=== PATIENT | male | born 1970 | race Caucasian/White ===

== ENCOUNTER 2022-01-29 08:08 | Outpatient (CLI) | payer BC, SELFPAY ==
[2022-01-29 08:39] LABS: Basophils Absolute Auto 0.1 K/mm3 (0.0-0.1); Basophils Percent Auto 1.1 % (0.2-1.2); Eosinophils Absolute Auto 0.2 K/mm3 (0-0.3); Eosinophils Percent Auto 2.6 % (0-4.4); Hematocrit 50.9 % (42.0-52.0); Hemoglobin 16.6 g/dL (14.0-18.0); Immature Granulocyte Absolute 0.14 K/mm3 (0.00-0.031); Immature Granulocyte Percent A 1.9 % (0-0.5); Lymphocytes Absolute Auto 2.51 K/mm3 (0.9-3.2); Lymphocytes Percent Auto 34.5 % (18.3-44.2); Mean Corpuscular HGB Conc 32.6 g/dl (32-36); Mean Corpuscular Hemoglobin 29.9 pg (26-34); Mean Corpuscular Volume 91.5 fl (80-100); Mean Platelet Volume 10.3 fl (7.4-10.4); Monocytes Absolute Auto 0.9 K/mm3 (0.1-0.6); Monocytes Percent Auto 11.7 % (2.6-8.5); Neutrophils Absolute Auto 3.5 K/mm3 (1.3-6.7); Neutrophils Percent Auto 48.2 % (45.5-73.1); Platelet Count Result 340 k/mm3 (150-375); Red Blood Count 5.56 M/mm3 (4.6-6.20); Red Cell Distribution Width 13.3 % (11.5-14.5); White Blood Count 7.3 K/mm3 (4.5-10.0)
[2022-01-29 08:42] LABS: Add Urine Microscopic? YES; Appearance Urine Clear (Clear); Bilirubin Urine Negative (Negative); Blood Urine Negative (Negative); Color Urine Yellow (Yellow); Glucose Urine UA Negative (Negative); Ketones Urine Negative (Negative); Leukocyte Esterase Ur Negative LEU/UL (NEGATIVE); Mucus Urine Rare /lpf; Nitrate Urine Negative (Negative); Protein Urine Negative (Negative); Specific Grav Ur 1.017 (1.001-1.035); Urobilinogen Urine Negative mg/dL (<2.0); WBC Urine 0-3 /hpf (0-3)
[2022-01-29 08:43] LABS: Alanine Aminotransferase 41 U/L (4-50); Albumin Level 4.6 g/dL (3.5-5.1); Alkaline Phosphatase 74 U/L (38-126); Anion Gap 6 mmol/L (8-16); Aspartate Amino Transferase 35 U/L (17-59); Bilirubin,Total 0.7 mg/dL (0.2-1.3); Blood Urea Nitrogen 14 mg/dL (9-20); Carbon Dioxide 26 mmol/L (22-30); Chloride 105 mmol/L (98-107); Cholesterol 280 mg/dL (0-200); Estimated Glomerular Filt Rate > 60; Glucose 99 mg/dL (65-110); HDL Direct 53 mg/dL; Potassium 4.3 mmol/L (3.4-5.0); Sodium 137 mmol/L (137-145); Triglycerides 97 mg/dL (<150)
[2022-01-29 08:55] LABS: LDL Cholesterol Direct 172 mg/dL
[2022-01-29 09:40] LABS: Prostate Specific Antigen 0.4 ng/mL (< OR = 4.0)
[2022-02-01 19:33] LABS: Testosterone Total 321 ng/dL (250-1100)
== END 2022-01-29 08:09 | disposition home or self-care (01) ==
LOC: ANHLAB 08:10
PROVIDERS: PCP Family Medicine; Visit Provider Physician Assistant
DX: Z00.00 Encounter for general adult medical examination without abnormal findings (principal); R53.83 Other fatigue; F41.1 Generalized anxiety disorder; I10 Essential (primary) hypertension
CPT/HCPCS: 36415; 80053; 80061; 81001; 84153; 84403; 84443; 85025; G0103

== ENCOUNTER 2022-05-11 16:19 | Outpatient (CLI) | payer BC, SELFPAY ==
[2022-05-11 17:26] LABS: Appearance Urine Clear (Clear); Bilirubin Urine 1+ (Negative); Blood Urine Trace-lysed (Negative); Color Urine Yellow (Yellow); Glucose Urine UA Negative (Negative); Ketones Urine 1+ mg/dL (Negative); Leukocyte Esterase Ur Negative LEU/UL (NEGATIVE); Nitrate Urine Negative (Negative); Protein Urine Negative (Negative); Specific Grav Ur 1.025 (1.001-1.035); Urobilinogen Urine 0.2 mg/dL (<2.0); pH Urine 5.5 (5.0-9.0)
[2022-05-11 17:36] LABS: Mucus Urine Few /lpf; WBC Urine 0-3 /hpf (0-3)
[2022-05-11 17:37] LABS: Add Urine Microscopic? YES
== END 2022-05-11 16:20 | disposition home or self-care (01) ==
LOC: ANHLAB 16:21
PROVIDERS: PCP Family Medicine; Visit Provider Physician Assistant
DX: E78.5 Hyperlipidemia, unspecified (principal); R31.9 Hematuria, unspecified
CPT/HCPCS: 36415; 81001; 87086

== ENCOUNTER 2022-05-17 10:21 | Outpatient (CLI) | payer BC, SELFPAY ==
[2022-05-17 10:51] LABS: Alanine Aminotransferase 41 U/L (6-50); Albumin Level 4.3 g/dL (3.5-5.1); Alkaline Phosphatase 64 U/L (38-126); Anion Gap 9 mmol/L (8-16); Aspartate Amino Transferase 42 U/L (17-59); Bilirubin,Total 0.8 mg/dL (0.2-1.3); Blood Urea Nitrogen 14 mg/dL (9-20); Carbon Dioxide 27 mmol/L (22-30); Chloride 100 mmol/L (98-107); Cholesterol 189 mg/dL (0-200); Estimated Glomerular Filt Rate > 60; Glucose 94 mg/dL (65-110); HDL Direct 38 mg/dL; Potassium 4.9 mmol/L (3.4-5.0); Sodium 136 mmol/L (137-145); Triglycerides 86 mg/dL (<150)
[2022-05-17 11:03] LABS: LDL Cholesterol Direct 122 mg/dL
== END 2022-05-17 10:22 | disposition home or self-care (01) ==
LOC: ANHLAB 10:27
PROVIDERS: PCP Family Medicine; Visit Provider Physician Assistant
DX: R31.9 Hematuria, unspecified (principal); E78.5 Hyperlipidemia, unspecified
CPT/HCPCS: 36415; 80053; 80061

== ENCOUNTER 2022-07-15 08:30 | Outpatient (CLI) | payer BC, SELFPAY ==
--- NOTE | ~2022-07-15 | CT_ITS ---
EXAMINATION: CT abdomen pelvis wo/w con DATE: 07/15/2022 09:41 INDICATION: Hematuria TECHNIQUE: Computed tomography (CT) of the abdomen and pelvis was performed without intravenous contr ast. CT of the abdomen and pelvis was then performed with a total of 130 mL Omnipaque 350 intravenous contrast using a double-bolus technique for simultaneous opacification of the renal parenchyma and r enal collecting system. The dose-length product (DLP) was 1734.33 mGy-cm. Automated exposure control and iterative reconstruction technique were employed. COMPARISON: 04/01/2011 FINDINGS: Minimal dependent atelectasis is present in the lung bases. The heart size is normal. The l iver, spleen, pancreas, and adrenal glands are normal. A stone is present in the nondistended gallbla dder. The kidneys are unremarkable. No suspicious renal or urothelial lesion is identified. No stones are identified in the kidneys, ureters, or bladder. There is no hydronephrosis or hydroureter. No pa thologically enlarged abdominal or pelvic lymph nodes are identified. There is a fat-containing umbil ical hernia. The appendix is normal. Colonic diverticulosis is present without evidence of diverticul itis. There is no free intraperitoneal gas or evidence of bowel obstruction. There is mild lumbar spo ndylosis. IMPRESSION: 1. No CT correlate for the patient's symptoms. Reviewed, dictated and finalized at location F.
== END 2022-07-15 08:31 | disposition home or self-care (01) ==
PROVIDERS: PCP Family Medicine; Visit Provider Urology
DX: R31.29 Other microscopic hematuria (principal)
CPT/HCPCS: 74178; Q9967

== ENCOUNTER 2024-08-08 15:30 | Outpatient (CLI) | payer BC, SELFPAY ==
[2024-08-08 16:42] LABS: Add Urine Microscopic? YES; Appearance Urine Clear (Clear); Bacteria Urine None Seen /hpf; Bilirubin Urine Negative (Negative); Blood Urine Trace (Negative); Color Urine Yellow (Yellow); Glucose Urine UA Negative (Negative); Ketones Urine Trace mg/dL (Negative); Leukocyte Esterase Ur Negative LEU/UL (Negative); Nitrate Urine Negative (Negative); Non Pathogenic Casts 0-2; Protein Urine Negative (Negative); Specific Grav Ur 1.017 (1.001-1.035); Squamous Epithelial Cell Urine None Seen /hpf (Few); Urobilinogen Urine 0.2 mg/dL (<2.0); WBC Urine 0-5 /hpf (0-3); pH Urine 5.5 (5.0-9.0)
[2024-08-08 16:43] LABS: Hematocrit 55.5 % (42.0-52.0); Hemoglobin 18.3 g/dL (14.0-18.0); Mean Corpuscular Hemoglobin 30.3 pg (26-34); Mean Corpuscular Volume 91.9 fl (80-100); Mean Platelet Volume 11.1 fl (7.4-10.4); Platelet Count Result 289 k/mm3 (150-375); Red Blood Count 6.04 M/mm3 (4.6-6.20); White Blood Count 13.1 K/mm3 (4.5-10.0)
[2024-08-08 16:54] LABS: Alanine Aminotransferase 34 U/L (6-50); Albumin Level 4.7 g/dL (3.5-5.1); Alkaline Phosphatase 58 U/L (38-126); Anion Gap 11 mmol/L (4-12); Aspartate Amino Transferase 39 U/L (17-59); Bilirubin,Total 1.4 mg/dL (0.2-1.3); Blood Urea Nitrogen 15 mg/dL (9-20); Calcium 9.4 mg/dL (8.4-10.2); Carbon Dioxide 28 mmol/L (22-30); Chloride 99 mmol/L (98-107); Cholesterol 240 mg/dL (0-200); Estimated Glomerular Filt Rate > 60; Glucose 66 mg/dL (65-110); HDL Direct 49 mg/dL; Sodium 138 mmol/L (137-145); Triglycerides 71 mg/dL (<150)
[2024-08-08 17:04] LABS: LDL Cholesterol Direct 165 mg/dL
[2024-08-08 17:25] LABS: Prostate Specific Antigen 0.8 ng/mL (< OR = 4.0)
== END 2024-08-08 15:31 | disposition home or self-care (01) ==
LOC: ANHLAB 15:32
PROVIDERS: PCP Family Medicine; Visit Provider Physician Assistant Medical
DX: E78.5 Hyperlipidemia, unspecified (principal); F41.1 Generalized anxiety disorder; Z00.00 Encounter for general adult medical examination without abnormal findings
CPT/HCPCS: 36415; 80053; 80061; 81001; 84153; 84443; 85027; G0103

== ENCOUNTER 2024-09-23 08:40 | Outpatient (CLI) | payer BC, SELFPAY ==
--- NOTE | 2024-09-23 09:07 | EST_ITS ---
Patient Info Name: Jamie Olivares Age: 54 years : 1970 Gender: Male Ht: 67 in Wt: 210 lbs BSA: 2.16 m2 HR: 66 bpm BP: 142 / 87 mmHg Exam Date: 09/23/2024 9:20 AM Exam Location: Echo Lab Patient Status: Outpatient Admit Date: 09/23/2024 Staff Ordering Physician: Teresita Pinzon PA-C Attending Provider: Teresita Pinzon PA-C Exercise Technologist: Connor AVINA [facility] Exercise Physician: Justin Gomez DO Exam Type: CA stress test treadmill Study Info A treadmill exercise stress test was performed. Summary 1. 1. Negative Michael exercise stress test for ischemic ST changes by ECG criteria. 2. 2. Good functional capacity, achieving 12 METs of workload. 3. 3. Appropriate HR response to exercise. 4. 4. Appropriate HR recovery at 1 minute post exercise. 5. 5. No imaging with stress testing. 6. 6. Patient informed of the above results. Protocol: Michael Stress ECG Details Stage: REST Duration (min): 0 min : 42 sec Speed (mph): 0.0 Grade (%): 0 HR (bpm): 64 SBP (mmHg): --- DBP (mmHg): --- METS: --- Stage: REST Duration (min): 6 min : 13 sec Speed (mph): 0.0 Grade (%): 0 HR (bpm): 68 SBP (mmHg): 142 DBP (mmHg): 87 METS: --- Stage: STAGE 1 Duration (min): 1 min : 0 sec Speed (mph): 1.7 Grade (%): 10 HR (bpm): 87 SBP (mmHg): 142 DBP (mmHg): 87 METS: --- Stage: STAGE 1 Duration (min): 2 min : 0 sec Speed (mph): 1.7 Grade (%): 10 HR (bpm): 86 SBP (mmHg): 142 DBP (mmHg): 87 METS: --- Stage: STAGE 1 Duration (min): 3 min : 0 sec Speed (mph): 1.7 Grade (%): 10 HR (bpm): 86 SBP (mmHg): 165 DBP (mmHg): 79 METS: --- Stage: STAGE 2 Duration (min): 1 min : 0 sec Speed (mph): 2.5 Grade (%): 12 HR (bpm): 94 SBP (mmHg): 165 DBP (mmHg): 79 METS: --- Stage: STAGE 2 Duration (min): 2 min : 0 sec Speed (mph): 2.5 Grade (%): 12 HR (bpm): 96 SBP (mmHg): 149 DBP (mmHg): 85 METS: --- Stage: STAGE 2 Duration (min): 3 min : 0 sec Speed (mph): 2.5 Grade (%): 12 HR (bpm): 95 SBP (mmHg): 149 DBP (mmHg): 85 METS: --- Stage: STAGE 3 Duration (min): 1 min : 0 sec Speed (mph): 3.4 Grade (%): 14 HR (bpm): 112 SBP (mmHg): 157 DBP (mmHg): 84 METS: --- Stage: STAGE 3 Duration (min): 2 min : 0 sec Speed (mph): 3.4 Grade (%): 14 HR (bpm): 112 SBP (mmHg): 157 DBP (mmHg): 84 METS: --- Stage: STAGE 3 Duration (min): 3 min : 0 sec Speed (mph): 3.4 Grade (%): 14 HR (bpm): 117 SBP (mmHg): 157 DBP (mmHg): 72 METS: --- Stage: STAGE 4 Duration (min): 1 min : 0 sec Speed (mph): 4.2 Grade (%): 16 HR (bpm): 134 SBP (mmHg): 157 DBP (mmHg): 72 METS: --- Stage: STAGE 4 Duration (min): 1 min : 32 sec Speed (mph): 4.2 Grade (%): 16 HR (bpm): 139 SBP (mmHg): 157 DBP (mmHg): 72 METS: --- Stage: RECOVERY Duration (min): 0 min : 27 sec Speed (mph): 0.0 Grade (%): 0 HR (bpm): 130 SBP (mmHg): 157 DBP (mmHg): 72 METS: --- Stage: RECOVERY Duration (min): 1 min : 27 sec Speed (mph): 0.0 Grade (%): 0 HR (bpm): 107 SBP (mmHg): 157 DBP (mmHg): 72 METS: --- Stage: RECOVERY Duration (min): 2 min : 27 sec Speed (mph): 0.0 Grade (%): 0 HR (bpm): 102 SBP (mmHg): 157 DBP (mmHg): 72 METS: --- Stage: RECOVERY Duration (min): 3 min : 27 sec Speed (mph): 0.0 Grade (%): 0 HR (bpm): 106 SBP (mmHg): 176 DBP (mmHg): 98 METS: --- Stage: RECOVERY Duration (min): 4 min : 27 sec Speed (mph): 0.0 Grade (%): 0 HR (bpm): 99 SBP (mmHg): 176 DBP (mmHg): 98 METS: --- Stage: RECOVERY Duration (min): 5 min : 22 sec Speed (mph): 0.0 Grade (%): 0 HR (bpm): 100 SBP (mmHg): 174 DBP (mmHg): 97 METS: --- Rest HR: 68 bpm Peak HR: 141 bpm Rest Sys BP: 142 mmHg Peak Sys BP: 176 mmHg Max Pred HR: 164 bpm % Max Pred HR: 86 % Target HR: 139 bpm Max RPP: 24,816 bpm*mmHg Kaur Score: 4 Termination Reason: Reached target heart rate or workload Cardiac Symptoms: Shortness of breath Max ST Seg Deviation: 1.30 mm Total Time: 10 min : 32 sec Rest Green BP: 87 mmHg Peak Green BP: 98 mmHg Angina Score: None Total METS: 12.1 Resting ECG Sinus rhythm, ST-T wave abnormality in inf/lat leads- consider ischemia. Stress ECG No ST-T abnormality with exercise. Baseline ST-T wave changes normalized. Arrhythmias None. Report Signatures
[2024-09-23 10:09] LABS: Basophils Absolute Auto 0.3 K/mm3 (0.0-0.1); Basophils Percent Auto 1.9 % (0.2-1.2); Eosinophils Absolute Auto 0.2 K/mm3 (0-0.3); Eosinophils Percent Auto 1.6 % (0-4.4); Hematocrit 57.4 % (42.0-52.0); Immature Granulocyte Absolute 0.65 K/mm3 (0.00-0.031); Immature Granulocyte Percent A 4.7 % (0-0.5); Lymphocytes Absolute Auto 3.18 K/mm3 (0.9-3.2); Lymphocytes Percent Auto 22.8 % (18.3-44.2); Mean Corpuscular HGB Conc 33.1 g/dl (32-36); Mean Corpuscular Volume 90.7 fl (80-100); Mean Platelet Volume 10.5 fl (7.4-10.4); Monocytes Absolute Auto 1.5 K/mm3 (0.1-0.6); Monocytes Percent Auto 10.7 % (2.6-8.5); Neutrophils Absolute Auto 8.1 K/mm3 (1.3-6.7); Neutrophils Percent Auto 58.3 % (45.5-73.1); Platelet Count Result 346 k/mm3 (150-375); Red Blood Count 6.33 M/mm3 (4.6-6.20); Red Cell Distribution Width 14.6 % (11.5-14.5)
--- OUTSIDE RECORDS SUMMARY | 2024-09-30 20:25 | XMS_ITS | Encounter Summary ---
Author Organization [employer] Address [address] [place] [address] Care Team Providers Care Cdl Team Truck Driver Name Role Phone Unavailable Primary Care Provider Unavailabl e Reason for Visit * Reason Onset Date Comments Needs Appointment 09/12/2019 Encounter Details Date Type Department Care Team (Late st Contact Info) Description 09/12/2019 Nurse Triage [facility] Nurse hat ironer [address] [place] [address] Nadiya Mullins RN Social History Tobacco Use Types Packs/Day Years Used Date Smoking Tobacco: Never Assessed Sex and Gender Information Value Date Recorded Sex Assigned at Not on file Gender Identity Not on file Sexual Orientation Not on file documented as of this encounter Miscellaneous Notes * Telephone Encounter - Nadiya Mullins RN - 09/12/2019 2:39 PM PRIMARY CARE SALES REPRESENTATIVE Reason for Disposition ??? Unable to contact caller / patient after multiple attempts? Protocols used: LUCINDA MANZO ARY CARE SALES REPRESENTATIVE * Telephone Encounter - Nadiya Mullins RN - 09/12/2019 2:38 PM PRIMARY CARE SALES REPRESENTATIVE Regarding: GIANCARLO Manzo Initiative ----- Message from Nadiya Mullins RN sent at 09/12/2019 2:38 PM PRIMARY CARE SALES REPRESENTATIVE ----- [facility] [address] Patient's current location: ARY CARE SALES REPRESENTATIVE documented in this encounter Plan of Treatment Not on file documented as of this encounter Visit Diagnoses Not on filedocumented in this encounter
--- OUTSIDE RECORDS SUMMARY | 2024-09-30 20:25 | XMS_ITS | Encounter Summary ---
Author Organization [facility] Address [address] [place] [address] Care Team Providers Care Cabinet Installer Name Role Phone Unavailable Primary Care Provider Unavailabl e Reason for Visit * Reason Onset Date Comments Case Management 09/19/2018 [employer] att empt #1 Encounter Details Date Type Department Care Team (Late st Contact Info) Description 09/19/2018 Patient Outreach [facility] Outpatient Care [facility] - [address] Fourth Floor [place], [place] [id number] Codi Cueva RN Case Management ([employer] attempt #1) Social History Tobacco Use Types Packs/Day Years Used Date Smoking Tobacco: Never Assessed Sex and Gender Information Value Date Recorded Sex Assigned at Not on file Gender Identity Not on file Sexual Orientation Not on file documented as of this encounter Progress Notes * Codi Cueva RN - 09/19/2018 1:01 PM CST Call placed to member with no answer. Message left asking for return call with CM phone number and provided nurse financial professional contact information as well. Reina Cueva RN Case Manager [facility] Care Management DCARE DIRECTOR documented in this encounter Plan of Treatment Not on file documented as of this encounter Visit Diagnoses Not on filedocumented in this encounter
--- OUTSIDE RECORDS SUMMARY | 2024-09-30 20:25 | XMS_ITS | Encounter Summary ---
Author Organization [employer] Address [address] [place] [address] Care Team Providers Care Oral Surgery Physician Name Role Phone Nadir Park MD Primary Care Provider [phone] Reason for Visit * Reason Onset Date Comments Case Management 12/30/2020 [place] Encounter Details Date Type Department Care Team (Late st Contact Info) Description 12/30/2020 Patient Outreach [facility] Outpatient Care Management - [place] [address] [place] [address] Codi Cueva RN Case Management (Elvira) Social History Tobacco Use Types Packs/Day Years Used Date Smoking Tobacco: Never Assessed Sex and Gender Information Value Date Recorded Sex Assigned at Not on file Gender Identity Not on file Sexual Orientation Not on file documented as of this encounter Progress Notes * Codi Cueva RN - 12/30/2020 3:[address] [facility] Chart reviewed, PCP added to Epic. [facility] And Tallow P[facility] [address] [place] [address] documented in this encounter Plan of Treatment Not on file documented as of this encounter Visit Diagnoses Not on filedocumented in this encounter Care Teams Oral Surgery Physician Relationship Specialty Start Date End Date Nadir Park MD [address] [place] [address] PCP - General Family Practice 12/30/20 documented as of this encounter
--- OUTSIDE RECORDS SUMMARY | 2024-09-30 20:25 | XMS_ITS | Encounter Summary ---
Author Organization [employer] Address [address] [place] [address] Care Team Providers Care Math And Physics Instructor Name Role Phone Unavailable Primary Care Provider Unavailabl e Reason for Visit * Reason Onset Date Comments Needs Appointment 09/17/2019 Encounter Details Date Type Department Care Team (Late st Contact Info) Description 09/17/2019 Nurse Triage [facility] Nurse engineer gas pumping station [address] [place] [address] Nadiya Mullins RN Social History Tobacco Use Types Packs/Day Years Used Date Smoking Tobacco: Never Assessed Sex and Gender Information Value Date Recorded Sex Assigned at Not on file Gender Identity Not on file Sexual Orientation Not on file documented as of this encounter Miscellaneous Notes * Telephone Encounter - Nadiya Mullins RN - 09/17/2019 2:34 PM DIRECTOR SOFTWARE QUALITY ASSURANCE Reason for Disposition ??? Unable to contact caller / patient after multiple attempts? Protocols used: LUCINDA MANZO CTOR SOFTWARE QUALITY ASSURANCE * Telephone Encounter - Nadiya Mullins RN - 09/17/2019 2:33 PM DIRECTOR SOFTWARE QUALITY ASSURANCE Regarding: GIANCARLO Manzo Initiative ----- Message from Naidya Mullins RN sent at 09/17/2019 2:33 PM DIRECTOR SOFTWARE QUALITY ASSURANCE ----- Patient's address on file: [address] [place] [address] Patient's current location: CTOR SOFTWARE QUALITY ASSURANCE documented in this encounter Plan of Treatment Not on file documented as of this encounter Visit Diagnoses Not on filedocumented in this encounter
--- OUTSIDE RECORDS SUMMARY | 2024-09-30 20:25 | XMS_ITS | Encounter Summary ---
Author Organization [employer] Address [address] [place] [address] Care Team Providers Care Procedures Nurse Name Role Phone Unavailable Primary Care Provider Unavailabl e Reason for Visit * Reason Onset Date Comments Needs Appointment 09/17/2019 Encounter Details Date Type Department Care Team (Late st Contact Info) Description 09/17/2019 Nurse Triage [facility] Nurse production controller [address] [place] [address] Nadiya Mullins RN Social History Tobacco Use Types Packs/Day Years Used Date Smoking Tobacco: Never Assessed Sex and Gender Information Value Date Recorded Sex Assigned at Not on file Gender Identity Not on file Sexual Orientation Not on file documented as of this encounter Miscellaneous Notes * Telephone Encounter - Nadiya Mullins RN - 09/17/2019 11:23 AM DYNAMOTOR REPAIRER Reason for Disposition ??? Message left on identifiable voicemail? Protocols used: LUCINDA MANZO MOTOR REPAIRER * Telephone Encounter - Nadiya Mullins RN - 09/17/2019 11:22 AM DYNAMOTOR REPAIRER Regarding: GIANCARLO Manzo Initiative ----- Message from Nadiya Mullins RN sent at 09/17/2019 11:21 AM DYNAMOTOR REPAIRER ----- Patient's address on file: [address] [place] [address] Patient's current location: MOTOR REPAIRER documented in this encounter Plan of Treatment Not on file documented as of this encounter Visit Diagnoses Not on filedocumented in this encounter
--- OUTSIDE RECORDS SUMMARY | 2024-09-30 20:25 | XMS_ITS | Encounter Summary ---
Author Organization [facility] Address [address] [place] [address] Care Team Providers Care Industrial Waste Treatment Technician Name Role Phone Unavailable Primary Care Provider Unavailabl e Reason for Visit * Reason Onset Date Comments Case Management 09/21/2018 [employer] Encounter Details Date Type Department Care Team (Late st Contact Info) Description 09/21/2018 Patient Outreach [facility] Outpatient Care Management - [place] [address] [place], [place] [id number] Codi Cueva RN Case Management ([employer]) Social History Tobacco Use Types Packs/Day Years Used Date Smoking Tobacco: Never Assessed Sex and Gender Information Value Date Recorded Sex Assigned at Not on file Gender Identity Not on file Sexual Orientation Not on file documented as of this encounter Progress Notes * Codi Cueva RN - 09/21/2018 10:51 AM CST Case Management- ED Follow Up ED visit on 09/18/18 for Headache Follow up visit scheduled: He is planning to follow up with Dr. Lambert self schedule. Prescriptions filled: Yes Medication Reconciliation: No issues noted. Understand Discharge Instructions: Yes Provide reminder on how to reach Nurse vocational training instructor. Educated pt on how to contact PCP when clinic is closed and regarding Nurse Intermediate Designer service, and use of urgent care clinics . Pt verbalized understanding.yes. Reina Cueva RN Case Manager [facility] Care Management CTOR OF OUTREACH documented in this encounter Plan of Treatment Not on file documented as of this encounter Visit Diagnoses Not on filedocumented in this encounter
--- OUTSIDE RECORDS SUMMARY | 2024-09-30 20:25 | XMS_ITS | Clinical Summary ---
Author Organization [employer] Address [address] [facility] Attn: Epic Prelude ADT [place] [address] Care Team Providers Care Water Safety Instructor Name Role Phone Nadir Park MD Primary Care Provider [phone] Social History Tobacco Use Types Packs/Day Years Used Date Smoking Tobacco: Never Assessed Sex and Gender Information Value Date Recorded Sex Assigned at Not on file Gender Identity Not on file Sexual Orientation Not on file Plan of Treatment Health Maintenance Due Date Last Done Comments DTAP/TDAP/TD VACCINES (1 - Tdap) 1987 HEPATITIS B VACCINES (1 of 3 - 19+ 3-dose series) 1987 COLORECTAL SCREENING 2013 Colorectal Cancer Screening 2013 FIT-DNA Q 3 years 2013 FIT/FOBT Q 1 year 2013 Flex Sig/CT Colonography Q 5 years 2013 ZOSTER VACCINE (1 of 2) 2018 INFLUENZA VACCINE (#1) 2024 PNEUMOCOCCAL VACCINE 0-64 YEARS Aged Out No longer eligible based on patient's age to complete this topic Care Teams Water Safety Instructor Relationship Specialty Start Date End Date Nadir Park MD [address] [facility] [address] [place] [address] PCP - General Family Practice 12/30/20
== END 2024-09-23 08:41 | disposition home or self-care (01) ==
LOC: ANHCARD 08:41
PROVIDERS: PCP Family Medicine; Visit Provider Physician Assistant Medical
DX: D72.829 Elevated white blood cell count, unspecified (principal); D58.2 Other hemoglobinopathies; R07.9 Chest pain, unspecified; R06.02 Shortness of breath
CPT/HCPCS: 36415; 85025; 93017

== ENCOUNTER 2024-11-23 07:13 | Outpatient (CLI) | payer BC, SELFPAY ==
--- OUTSIDE RECORDS SUMMARY | 2024-11-23 07:17 | XMS_ITS | Clinical Summary ---
Author Organization [facility] Address [address] [facility] Attn: Epic Prelude ADT [place] [address] Care Team Providers Care Residential Field Manager Name Role Phone Nadir Park MD Primary Care Provider [phone] Social History Tobacco Use Types Packs/Day Years Used Date Smoking Tobacco: Never Assessed Sex and Gender Information Value Date Recorded Sex Assigned at Not on file Legal Sex Male 5:18 PM PHARMACY ANALYST Gender Identity Not on file Sexual Orientation [...] age to complete this topic Care Teams Residential Field Manager Relationship Specialty Start Date End Date Nadir Park MD [address] [facility] [address] [place] [address] PCP - General Family Practice 12/30/20
[2024-11-23 07:28] LABS: Basophils Absolute Auto 0.2 K/mm3 (0.0-0.1); Basophils Percent Auto 1.6 % (0.2-1.2); Eosinophils Absolute Auto 0.3 K/mm3 (0-0.3); Eosinophils Percent Auto 3.2 % (0-4.4); Hematocrit 54.4 % (42.0-52.0); Hemoglobin 18.1 g/dL (14.0-18.0); Immature Granulocyte Absolute 0.33 K/mm3 (0.00-0.031); Immature Granulocyte Percent A 3.6 % (0-0.5); Lymphocytes Absolute Auto 3.17 K/mm3 (0.9-3.2); Lymphocytes Percent Auto 34.6 % (18.3-44.2); Mean Corpuscular HGB Conc 33.3 g/dl (32-36); Mean Corpuscular Hemoglobin 29.2 pg (26-34); Mean Corpuscular Volume 87.9 fl (80-100); Mean Platelet Volume 10.1 fl (7.4-10.4); Monocytes Absolute Auto 0.9 K/mm3 (0.1-0.6); Monocytes Percent Auto 9.5 % (2.6-8.5); Neutrophils Absolute Auto 4.4 K/mm3 (1.3-6.7); Neutrophils Percent Auto 47.5 % (45.5-73.1); Platelet Count Result 287 k/mm3 (150-375); Red Blood Count 6.19 M/mm3 (4.6-6.20); White Blood Count 9.2 K/mm3 (4.5-10.0)
[2024-11-27 02:42] LABS: Testosterone Total 291 ng/dL (250-1100)
== END 2024-11-23 07:14 | disposition home or self-care (01) ==
LOC: ANHLAB 07:15
PROVIDERS: PCP Family Medicine; Visit Provider Physician Assistant Medical
DX: E78.00 Pure hypercholesterolemia, unspecified (principal); D72.829 Elevated white blood cell count, unspecified; D75.1 Secondary polycythemia; Z79.890 Hormone replacement therapy
CPT/HCPCS: 36415; 84403; 85025

== ENCOUNTER 2025-05-30 06:58 | Outpatient (CLI) | payer BC, SELFPAY ==
[2025-05-30 07:09] LABS: Hematocrit 47.7 % (40.0-54.0); Hemoglobin 15.5 g/dL (14.0-18.0); Immature Granulocyte Percent A 1.5 % (0.0-0.0); Lymphocytes Absolute Auto 2.39 K/mm3 (1.10-4.50); Mean Corpuscular HGB Conc 32.5 g/dL (32-36); Mean Corpuscular Hemoglobin 29.0 pg (27.0-31.0); Mean Corpuscular Volume 89.2 fL (78.0-102.0); Nucleated Red Blood Cells Absolute Auto 0.00 K/mm3 (0.00-0.00); Nucleated Red Blood Cells Perc 0.0 % (0-0.0); Platelet Count Result 277 K/mm3 (150-420); Red Blood Count 5.35 M/mm3 (4.70-6.10); White Blood Count 9.5 K/mm3 (4.8-10.8)
[2025-05-30 07:53] LABS: Alanine Aminotransferase 31 U/L (6-50); Albumin Level 4.5 g/dL (3.5-5.1); Alkaline Phosphatase 61 U/L (38-126); Anion Gap 9 mmol/L (4-12); Aspartate Amino Transferase 31 U/L (17-59); Bilirubin,Total 0.7 mg/dL (0.2-1.3); Blood Urea Nitrogen 21 mg/dL (9-20); Calcium 10.0 mg/dL (8.4-10.2); Carbon Dioxide 28 mmol/L (22-30); Chloride 105 mmol/L (98-107); Cholesterol 228 mg/dL (0-200); Estimated Glomerular Filt Rate > 60; Glucose 94 mg/dL (65-110); HDL Direct 48 mg/dL; Osmolality Calculated 297 mOsm/kg (285-295); Potassium 5.2 mmol/L (3.4-5.0); Sodium 142 mmol/L (137-145); Total Protein 7.1 g/dL (6.3-8.2); Triglycerides 133 mg/dL (<150)
[2025-05-30 08:23] LABS: Prostate Specific Antigen 0.6 ng/mL (< OR = 4.0)
== END 2025-05-30 06:59 | disposition home or self-care (01) ==
LOC: CHSLAB 07:00
PROVIDERS: PCP Family Medicine; Visit Provider Student in an Organized Health Care Education/Training Program
DX: I10 Essential (primary) hypertension (principal); E78.5 Hyperlipidemia, unspecified; Z12.5 Encounter for screening for malignant neoplasm of prostate
CPT/HCPCS: 36415; 80053; 80061; 84153; 84402; 84403; 85025; G0103